=== PATIENT | female | born 1950 | race Caucasian/White ===

== ENCOUNTER 2018-01-06 00:55 | Emergency (ER) | payer MEDICARE ==
[~2018-01-06] VITALS: Ht 170.2 cm; Wt 106.1 kg
[~2018-01-06 00:55] MED LIST: ACET325 PO; ALPR.25; ALPR.25 PO; ASPI325 PO; ASPI81EC PO; BUPR150ER PO; BUPR150T2 PO; CHOL10002 PO; CYCL10; CYCL10 PO; Coq-1030 MG; DICL250 PO; DULO60 PO; Daily Multiple1 EACH; ESTR25VT PV; FLUT.05NI; FOLI400 PO; Fish Oil300 MG; GRALISE PO; HYDACE5 PO; HYDACE5325 PO; HYDR1TAB94; LEVSOD100 PO; LEVSOD125 PO; LIVALO4 MG PO; MAGOXI400 PO; MELA3; METO50 PO; MOMENI; MULVITMIND PO; Milk Of Ma400 MG/5 M PO; NEBI10 PO; Naprosyn375 MG PO; OLME20 PO; OLME40; OLME40 PO; OMEP20ER PO; PRAM.125 PO; PRIM50 PO; Percocet 5-3251 EACH PO; SERT50 PO; TEMA15 PO; TRAZ50; UBID100 PO; Valium5 MG PO; XARELTO20 MG PO; [UNRECOGNIZED DRUG - CODE] PO
[2018-01-06 02:20] LABS: BASOPHILS ABSOLUTE AUTO 0.09 K/mm3 (0.00-0.23); BASOPHILS PERCENT AUTO 1 % (0-2); EOSINOPHILS ABSOLUTE AUTO 0.17 K/mm3 (0.00-0.68); EOSINOPHILS PERCENT AUTO 2 % (0-6); Hematocrit 35.9 % (33.0-51.0); Hemoglobin 12.8 g/dL (11.5-16.0); IMMATURE GRAN ABSOLUTE AUTO 0.09 K/mm3 (0.00-0.10); IMMATURE GRAN PERCENT AUTO 1 % (0-1); LYMPHOCYTES ABSOLUTE AUTO 3.75 K/mm3 (0.84-5.20); LYMPHOCYTES PERCENT AUTO 32 % (21-46); MONOCYTES ABSOLUTE AUTO 1.02 K/mm3 (0.16-1.47); MONOCYTES PERCENT AUTO 9 % (4-13); Mean Corpuscular HGB 34.9 pg (26.0-34.0); Mean Corpuscular HGB Conc 35.7 g/dL (31.5-36.5); Mean Corpuscular Volume 98 fL (80-100); Mean Platelet Volume 11.6 fL (9.1-12.4); NEUTROPHILS ABSOLUTE AUTO 6.55 K/mm3 (1.96-9.15); NEUTROPHILS PERCENT AUTO 56 % (41-73); Platelet Count 223 K/mm3 (150-400); RDW Standard Deviation 43.3 fL (35.1-46.3); Red Blood Cell Count 3.67 M/mm3 (3.80-5.20); White Blood Cell Count 11.67 K/mm3 (4.00-11.30)
[2018-01-06 02:30] LABS: Alanine Aminotransfer (ALT/SGP 31 U/L (12-78); Albumin, Blood 3.4 g/dL (3.4-5.0); Alk Phos 98 U/L (50-136); Anion Gap 10 mmol/L (6-16); Aspartate Aminotrans (AST/SGOT 16 U/L (12-37); Bilirubin, Total 0.3 mg/dL (0.1-1.0); Blood Urea Nitrogen 25 mg/dL (8-24); Bun/Creatinine Ratio 26.2 (12.0-20.0); CO2, Blood 26 mmol/L (21-32); Calcium, Blood 8.5 mg/dL (8.5-10.1); Chloride, Blood 98 mmol/L (98-108); Creatinine, Blood 0.96 mg/dL (0.40-1.00); Globulin, Blood 3.3 g/dL (2.2-4.0); Glomerular Filtration Rate >60 (60-); Glucose, Blood 117 mg/dL (70-99); Potassium, Blood 3.9 mmol/L (3.5-5.5); Sodium, Blood 134 mmol/L (136-145); Total Protein, Blood 6.7 g/dL (6.4-8.2); Troponin I <0.015 ng/mL (0.000-0.040)
== END 2018-01-06 04:00 | disposition home or self-care (01) ==
LOC: ER 00:55
PROVIDERS: Emergency Medicine
DX: I48.91 Unspecified atrial fibrillation (principal); F41.9 Anxiety disorder, unspecified; I10 Essential (primary) hypertension; Z88.2 Allergy status to sulfonamides; Z88.1 Allergy status to other antibiotic agents; Z88.8 Allergy status to other drugs, medicaments and biological substances; Z79.899 Other long term (current) drug therapy
CPT/HCPCS: 36415; 71046; 80053; 83690; 84484; 85025; 93005; 93010; 99284; J2405

== ENCOUNTER 2018-01-19 07:49 | Emergency (ER) | payer MEDICARE ==
[~2018-01-19] VITALS: Ht 170.2 cm; Wt 105.2 kg
[~2018-01-19 07:49] MED LIST changes: -TRAZ50; +TRAZ50 PO
[2018-01-19 08:19] LABS: BASOPHILS ABSOLUTE AUTO 0.07 K/mm3 (0.00-0.23); BASOPHILS PERCENT AUTO 1 % (0-2); EOSINOPHILS PERCENT AUTO 3 % (0-6); Hematocrit 31.9 % (33.0-51.0); Hemoglobin 11.2 g/dL (11.5-16.0); IMMATURE GRAN ABSOLUTE AUTO 0.01 K/mm3 (0.00-0.10); IMMATURE GRAN PERCENT AUTO 0 % (0-1); LYMPHOCYTES ABSOLUTE AUTO 2.07 K/mm3 (0.84-5.20); LYMPHOCYTES PERCENT AUTO 29 % (21-46); MONOCYTES ABSOLUTE AUTO 0.53 K/mm3 (0.16-1.47); MONOCYTES PERCENT AUTO 8 % (4-13); Mean Corpuscular HGB 35.3 pg (26.0-34.0); Mean Corpuscular HGB Conc 35.1 g/dL (31.5-36.5); Mean Platelet Volume 11.2 fL (9.1-12.4); NEUTROPHILS ABSOLUTE AUTO 4.15 K/mm3 (1.96-9.15); NEUTROPHILS PERCENT AUTO 59 % (41-73); Platelet Count 184 K/mm3 (150-400); RDW Coefficient Variation 11.9 % (11.7-14.2); RDW Standard Deviation 43.4 fL (35.1-46.3); Red Blood Cell Count 3.17 M/mm3 (3.80-5.20); White Blood Cell Count 7.03 K/mm3 (4.00-11.30)
[2018-01-19 08:20] LABS: Mean Corpuscular Volume 101 fL (80-100)
[2018-01-19] MEDS ORDERED: QVAR REDIHALE10.6 G1 (08:35)
[2018-01-19 08:36] LABS: Alanine Aminotransfer (ALT/SGP 26 U/L (12-78); Albumin, Blood 3.3 g/dL (3.4-5.0); Alk Phos 83 U/L (50-136); Anion Gap 7 mmol/L (6-16); Aspartate Aminotrans (AST/SGOT 16 U/L (12-37); Bilirubin, Total 0.3 mg/dL (0.1-1.0); Blood Urea Nitrogen 20 mg/dL (8-24); Bun/Creatinine Ratio 22.5 (12.0-20.0); CO2, Blood 26 mmol/L (21-32); Calcium, Blood 8.6 mg/dL (8.5-10.1); Chloride, Blood 102 mmol/L (98-108); Creatinine, Blood 0.89 mg/dL (0.40-1.00); Globulin, Blood 3.3 g/dL (2.2-4.0); Glomerular Filtration Rate >60 (60-); Glucose, Blood 105 mg/dL (70-99); Potassium, Blood 4.3 mmol/L (3.5-5.5); Sodium, Blood 135 mmol/L (136-145); Total Protein, Blood 6.6 g/dL (6.4-8.2); Troponin I <0.015 ng/mL (0.000-0.040)
[2018-01-19 09:10] LABS: Free Thyroxine 1.21 ng/dL (0.70-1.60)
[2018-01-19 09:12] LABS: Thyroid Stimulating Hormone 2.23 uIU/mL (0.360-4.800)
== END 2018-01-19 09:20 | disposition home or self-care (01) ==
LOC: ER 07:49
PROVIDERS: Emergency Medicine
DX: I48.91 Unspecified atrial fibrillation (principal); R07.89 Other chest pain; Z88.2 Allergy status to sulfonamides; Z88.8 Allergy status to other drugs, medicaments and biological substances; Z88.1 Allergy status to other antibiotic agents; Z79.899 Other long term (current) drug therapy; Z79.82 Long term (current) use of aspirin; Z79.891 Long term (current) use of opiate analgesic; F41.9 Anxiety disorder, unspecified; I10 Essential (primary) hypertension
CPT/HCPCS: 36415; 71046; 80053; 84439; 84443; 84484; 85025; 93005; 93010

== ENCOUNTER 2018-04-21 06:12 | Day surgery (SDC) | payer MEDICARE ==
[~2018-04-21] VITALS: Ht 165.1 cm; Wt 103.0 kg
[~2018-04-21 06:12] MED LIST changes: +ALBU90OI6 INH; +Budeprion Xl300 MG PO; -Coq-1030 MG; +Coq-1030 MG PO; +ELIQUIS5 MG PO; +HYDCHL25 PO; -HYDR1TAB94; +HYDR1TAB94 PO; +Hair, Skin & N1 EACH PO; +METO25 PO; +MONT10T PO; +Omeprazole20 M1 PO; +QVAR REDIHALE10.6 G1
== END 2018-04-21 22:44 | disposition home or self-care (01) ==
LOC: MHTC 06:12
PROC: 5A2204Z Restoration of Cardiac Rhythm, Single (ICD-10-PCS; principal; 2018-04-21)
DX: I48.1 Persistent atrial fibrillation (principal)
CPT/HCPCS: 92960; 93005; 93010; 99152; J2250; J3010; J7030

== ENCOUNTER → 2019-05-07 | Outpatient (CLI) | payer MEDICARE ==
[2019-05-09 14:07] LABS: HPV 16 Negative (Negative); HPV 18 Negative (Negative); HPV OTHER HR TYPES Negative (Negative)
== END ==
LOC: LAB SHORT 17:57 → LAB 17:57
PROVIDERS: Nurse Practitioner Women's Health
DX: Z12.72 Encounter for screening for malignant neoplasm of vagina (principal); Z91.89 Other specified personal risk factors, not elsewhere classified
CPT/HCPCS: 87624; G0123

== ENCOUNTER 2019-10-09 13:09 | Emergency (ER) | payer MEDICARE ==
[~2019-10-09] VITALS: Ht 170.2 cm; Wt 102.5 kg
[2019-10-09] MEDS ORDERED: CEFD300 PO (14:37)
[2019-10-09] MEDS ORDERED: BENZ100A PO (14:44)
== END 2019-10-09 14:42 | disposition home or self-care (01) ==
LOC: ER 13:09
DX: J18.9 Pneumonia, unspecified organism (principal); I48.91 Unspecified atrial fibrillation; I10 Essential (primary) hypertension; F41.9 Anxiety disorder, unspecified; Z88.2 Allergy status to sulfonamides; Z88.8 Allergy status to other drugs, medicaments and biological substances; Z88.3 Allergy status to other anti-infective agents; Z79.51 Long term (current) use of inhaled steroids; Z79.899 Other long term (current) drug therapy; Z79.82 Long term (current) use of aspirin
CPT/HCPCS: 71046; 99283-25

== ENCOUNTER → 2020-01-14 | Outpatient (CLI) | payer MEDICARE ==
[~2020-01-14] MED LIST changes: +BENZ100A PO; +CEFD300 PO
== END ==
LOC: LAB SHORT 12:31 → LAB EV 12:31
DX: R05 Cough (principal)
CPT/HCPCS: U0003

== ENCOUNTER → 2020-03-24 | Outpatient (CLI) | payer MEDICARE ==
[~2020-03-24] MED LIST changes: +Aspirin EC81 MG PO; +BUPROPION XL150 M1 PO; +CEPH500 PO; +LISI10 PO; +METOPROLOL TART25 MG PO; +Methotrexate2.5 MG; +SYNTHROID125 MC1 PO; +VITAMIN D31000 UNI1 PO
[2020-03-29 04:11] LABS: HSV-1 DNA Negative (Negative); HSV-2 DNA Negative (Negative)
== END | disposition home or self-care (01) ==
LOC: LAB SHORT 18:22 → LAB 18:22
PROVIDERS: Internal Medicine
DX: K12.1 Other forms of stomatitis (principal); N76.0 Acute vaginitis; R30.9 Painful micturition, unspecified
CPT/HCPCS: 87077; 87086; 87186; 87529

== ENCOUNTER 2020-03-26 16:06 | Inpatient (IN) | payer MEDICARE ==
[~2020-03-26] VITALS: Ht 167.6 cm; Wt 112.5 kg
[~2020-03-26 16:06] MED LIST changes: -BUPROPION XL150 M1 PO; -CEPH500 PO; -LISI10 PO; -METOPROLOL TART25 MG PO; -Methotrexate2.5 MG; -SYNTHROID125 MC1 PO
[2020-03-26 16:40] LABS: BASOPHILS ABSOLUTE AUTO 0.02 K/mm3 (0.00-0.23); BASOPHILS PERCENT AUTO 0 % (0-2); EOSINOPHILS PERCENT AUTO 0 % (0-6); Hemoglobin 9.9 g/dL (11.5-16.0); IMMATURE GRAN ABSOLUTE AUTO 0.07 K/mm3 (0.00-0.10); IMMATURE GRAN PERCENT AUTO 1 % (0-1); LYMPHOCYTES ABSOLUTE AUTO 0.76 K/mm3 (0.84-5.20); LYMPHOCYTES PERCENT AUTO 6 % (21-46); MONOCYTES ABSOLUTE AUTO 1.46 K/mm3 (0.16-1.47); MONOCYTES PERCENT AUTO 11 % (4-13); Mean Corpuscular HGB 36.5 pg (26.0-34.0); Mean Corpuscular HGB Conc 34.1 g/dL (31.5-36.5); Mean Corpuscular Volume 107 fL (80-100); NEUTROPHILS ABSOLUTE AUTO 11.42 K/mm3 (1.96-9.15); NEUTROPHILS PERCENT AUTO 83 % (41-73); Platelet Count 160 K/mm3 (150-400); RDW Coefficient Variation 12.8 % (11.7-14.2); RDW Standard Deviation 49.3 fL (35.1-46.3); Red Blood Cell Count 2.71 M/mm3 (3.80-5.20); White Blood Cell Count 13.73 K/mm3 (4.00-11.30)
[2020-03-26 16:59] LABS: Source, Urine Clean Catch
[2020-03-26 17:01] LABS: Alanine Aminotransfer (ALT/SGP 26 U/L (12-78); Albumin, Blood 2.8 g/dL (3.4-5.0); Albumin/Globulin Ratio 0.8 (0.8-1.8); Alk Phos 88 U/L (50-136); Anion Gap 8 mmol/L (6-16); Aspartate Aminotrans (AST/SGOT 18 U/L (12-37); Bilirubin, Total 0.7 mg/dL (0.1-1.0); Blood Urea Nitrogen 17 mg/dL (8-24); Bun/Creatinine Ratio 18.3 (12.0-20.0); CO2, Blood 24 mmol/L (21-32); Calcium, Blood 8.3 mg/dL (8.5-10.1); Chloride, Blood 95 mmol/L (98-108); Creatinine, Blood 0.93 mg/dL (0.40-1.00); Globulin, Blood 3.5 g/dL (2.2-4.0); Glomerular Filtration Rate >60 (60-); Glucose, Blood 146 mg/dL (70-99); Potassium, Blood 3.4 mmol/L (3.5-5.5); Sodium, Blood 127 mmol/L (136-145); Total Protein, Blood 6.3 g/dL (6.4-8.2); Troponin I 0.091 ng/mL (0.000-0.040)
[2020-03-26 17:02] LABS: Bilirubin, Urine Neg (Neg); Blood, Urine 3+ (Neg); Glucose Qualitative, Urine Neg (Neg); Ketones, Urine Neg (Neg); Leukocyte Esterase, Urine 3+ (Neg); Nitrite, Urine Neg (Neg); Protein, Urine 2+ (Neg); Urobilinogen, Urine NORM (Normal)
[2020-03-26 17:15] LABS: Appearance, Urine Hazy (Clear); Color, Urine Yellow (P-Yellow)
[2020-03-26 17:16] LABS: Squamous Epithelial Cells Many /hpf (Few); White Blood Cells, Urine TNTC /hpf (0-5)
[2020-03-26 17:17] LABS: Bacteria Not Seen /hpf
[2020-03-26] MEDS ORDERED: SYNTHROID125 MC1 PO ×2 (17:59)
[2020-03-26] MEDS ORDERED: METOPROLOL TART25 MG PO (18:00)
[2020-03-26] MEDS ORDERED: Methotrexate2.5 MG (18:01)
[2020-03-26] MEDS ORDERED: BUPROPION XL150 M1 PO ×2 (18:03)
[2020-03-26 18:51] LABS: International Normalized Ratio 1.29; Prothrombin Time Results 13.6 Sec (9.7-11.5)
--- NOTE | 2020-03-26 22:52 | NUR ---
PCU ADMIT PT BROUGHT TO PCU-13 BY STACIE FROM ER @ [facility] 1945. PT A&O X4. PT VERY WEAK, REQUIRING 1 PERSON ASSIST TO STAND AND TURN FROM [facility] TO PCU BED. PT THEN REPORTED DIZZINESS W/ GETTING UP. BP FOUND TO BE LOW UPON ARRIVAL TO UNIT. 500 ML NS BOLUS ADMINISTERED PER ORDERS UPON PT ARRIVAL TO UNIT. BP IMPROVED. CALL TO RIYA CALLEJAS W/ ORDER TO DC FURTHER BOLUS ORDERS & CONTINUE W/ NS MAINTENCE FLUID ONLY. ALL OTHER VSS. MONITOR SHOWING AFIB, HR 80's. SPO2 > 92% ON RA. PT W/ EPISODE OF INCONTINENCE UPON ADMIT. PT REPORTS NORMALLY BEING CONTINENT, BUT NOW HAVING EPISODES OF INCONTINENCE D/T URGENCY. ATTENDS PLACED. SORES NOTED TO PT MOUTH. PT REFUSING PRN MOUTHWASH PER EMAR AT THIS TIME. PT W/ HOME MED ORDER FOR PITAVASTATIN, NOT W/ PT AT THIS TIME, PT STATES SHOULD BE ABLE TO BRING MEDICATION IN TOMORROW. WILL CONTINUE TO MONITOR & PROVIDE CARE.
[2020-03-26 23:07] LABS: Hematocrit 28.2 % (33.0-51.0); Hemoglobin 9.7 g/dL (11.5-16.0)
--- NOTE | 2020-03-27 05:17 | NUR ---
SHIFT SUMMARY PT CONTINUES TO BE A&O X4. VSS. MONITOR SHOWING AFIB, HR 80's-90's. PT REPORTS FEELING BETTER THIS AM. STRENGTH IMPROVING. NS GTT INFUSING PER ORDERS. WILL CONTINUE TO MONITOR & PROVIDE CARE.
[2020-03-27 05:49] LABS: BASOPHILS ABSOLUTE AUTO 0.04 K/mm3 (0.00-0.23); BASOPHILS PERCENT AUTO 0 % (0-2); EOSINOPHILS ABSOLUTE AUTO 0.02 K/mm3 (0.00-0.68); EOSINOPHILS PERCENT AUTO 0 % (0-6); Hematocrit 28.6 % (33.0-51.0); Hemoglobin 9.7 g/dL (11.5-16.0); IMMATURE GRAN ABSOLUTE AUTO 0.08 K/mm3 (0.00-0.10); IMMATURE GRAN PERCENT AUTO 1 % (0-1); LYMPHOCYTES ABSOLUTE AUTO 1.22 K/mm3 (0.84-5.20); LYMPHOCYTES PERCENT AUTO 9 % (21-46); MONOCYTES ABSOLUTE AUTO 1.36 K/mm3 (0.16-1.47); MONOCYTES PERCENT AUTO 10 % (4-13); Mean Corpuscular HGB 36.9 pg (26.0-34.0); Mean Corpuscular HGB Conc 33.9 g/dL (31.5-36.5); Mean Corpuscular Volume 109 fL (80-100); Mean Platelet Volume 12.1 fL (9.1-12.4); NEUTROPHILS ABSOLUTE AUTO 10.47 K/mm3 (1.96-9.15); NEUTROPHILS PERCENT AUTO 79 % (41-73); Platelet Count 151 K/mm3 (150-400); RDW Coefficient Variation 12.8 % (11.7-14.2); RDW Standard Deviation 50.3 fL (35.1-46.3); Red Blood Cell Count 2.63 M/mm3 (3.80-5.20); White Blood Cell Count 13.19 K/mm3 (4.00-11.30)
[2020-03-27 06:01] LABS: International Normalized Ratio 1.7; Prothrombin Time Results 17.7 Sec (9.7-11.5)
[2020-03-27 06:18] LABS: Alanine Aminotransfer (ALT/SGP 23 U/L (12-78); Albumin, Blood 2.6 g/dL (3.4-5.0); Albumin/Globulin Ratio 0.7 (0.8-1.8); Alk Phos 86 U/L (50-136); Anion Gap 9 mmol/L (6-16); Aspartate Aminotrans (AST/SGOT 23 U/L (12-37); Bilirubin, Total 0.8 mg/dL (0.1-1.0); Blood Urea Nitrogen 14 mg/dL (8-24); CO2, Blood 24 mmol/L (21-32); Calcium, Blood 8.2 mg/dL (8.5-10.1); Chloride, Blood 95 mmol/L (98-108); Creatinine, Blood 0.94 mg/dL (0.40-1.00); Globulin, Blood 3.8 g/dL (2.2-4.0); Glomerular Filtration Rate >60 (60-); Glucose, Blood 121 mg/dL (70-99); Potassium, Blood 3.7 mmol/L (3.5-5.5); Sodium, Blood 128 mmol/L (136-145); Total Protein, Blood 6.4 g/dL (6.4-8.2)
--- NOTE | 2020-03-27 16:47 | NUR ---
Echocardiogram completed.
--- NOTE | 2020-03-27 19:27 | NUR ---
SHIFT SUMMARY NO ACUTE CHANGES NOTED THROUGH THE DAY. VSS, PT IS TOLERATING PO INTAKE, IV FLUIDS & ABX INFUSED PER EMAR. STAND BY ASSIST TO THE BATHROOM. NO STOOLS REPORTED BY PT TODAY. CALL LIGHT IN REACH.
[2020-03-27 21:31] LABS: Stool Occult Blood Guaiac 1 Neg (Neg)
[2020-03-27 22:52] LABS: Adenovirus F 40/41 Not Detected (NOT DETECT); Astrovirus Not Detected (NOT DETECT); Campylobacter Sp Not Detected (NOT DETECT); Cryptosporidium Not Detected (NOT DETECT); Cyclospora Cayetanensis Not Detected (NOT DETECT); E. Coli O157 Not Detected (NOT DETECT); Entamoeba Histolytica Not Detected (NOT DETECT); Enteroaggregative E. coli-EAEC Not Detected (NOT DETECT); Enteropathogenic E. coli-EPEC Not Detected (NOT DETECT); Enterotoxigenic E. coli-ETEC Not Detected (NOT DETECT); Giardia Lamblia Not Detected (NOT DETECT); Norovirus GI/GII Not Detected (NOT DETECT); Plesiomonas Shigelloides Not Detected (NOT DETECT); Rotavirus A Not Detected (NOT DETECT); Salmonella Sp Not Detected (NOT DETECT); Sapovirus Not Detected (NOT DETECT); Shiga Toxin-prod E. coli-STEC Not Detected (NOT DETECT); Shigella/Enteroin E. coli-EIEC Not Detected (NOT DETECT); Vibrio Cholerae Not Detected (NOT DETECT); Vibrio Sp Not Detected (NOT DETECT); Yersinia Enterocolitica Not Detected (NOT DETECT)
--- NOTE | 2020-03-28 05:02 | NUR ---
SHIFT SUMMARY PT SLEEPING IN ROOM COMFORTABLY AT THIS TIME. NO ACUTE CHANGES IN STATUS T/O NIGHT. PT SLEPT WELL, AND CALLED APPROPRIATELY FOR NEEDS. DENIED CP OR SOB T/O NIGHT. IVF INSUING IN PIV AT 100ML/HR. PT CALLED FOR SBA TO BSC. PT ABLE TO MOVE TO BSC W/O HELP. REPORTS STILL SLIGHTLY UNSTEADY BUT DOES NOT REQUIRE HELP. CALL LIGHT IN REACH.
[2020-03-28 12:42] LABS: BASOPHILS ABSOLUTE AUTO 0.03 K/mm3 (0.00-0.23); BASOPHILS PERCENT AUTO 0 % (0-2); EOSINOPHILS PERCENT AUTO 1 % (0-6); Hematocrit 27.3 % (33.0-51.0); Hemoglobin 9.4 g/dL (11.5-16.0); IMMATURE GRAN ABSOLUTE AUTO 0.06 K/mm3 (0.00-0.10); IMMATURE GRAN PERCENT AUTO 1 % (0-1); LYMPHOCYTES ABSOLUTE AUTO 0.96 K/mm3 (0.84-5.20); LYMPHOCYTES PERCENT AUTO 11 % (21-46); MONOCYTES ABSOLUTE AUTO 0.92 K/mm3 (0.16-1.47); MONOCYTES PERCENT AUTO 10 % (4-13); Mean Corpuscular HGB 36.2 pg (26.0-34.0); Mean Corpuscular HGB Conc 34.4 g/dL (31.5-36.5); Mean Corpuscular Volume 105 fL (80-100); Mean Platelet Volume 12.2 fL (9.1-12.4); NEUTROPHILS PERCENT AUTO 77 % (41-73); Platelet Count 146 K/mm3 (150-400); RDW Coefficient Variation 12.6 % (11.7-14.2); RDW Standard Deviation 48.1 fL (35.1-46.3); White Blood Cell Count 9.07 K/mm3 (4.00-11.30)
[2020-03-28 12:55] LABS: Anion Gap 6 mmol/L (6-16); Blood Urea Nitrogen 15 mg/dL (8-24); Bun/Creatinine Ratio 17.8 (12.0-20.0); CO2, Blood 26 mmol/L (21-32); Calcium, Blood 8.3 mg/dL (8.5-10.1); Chloride, Blood 95 mmol/L (98-108); Creatinine, Blood 0.84 mg/dL (0.40-1.00); Glomerular Filtration Rate >60 (60-); Glucose, Blood 122 mg/dL (70-99); Potassium, Blood 3.7 mmol/L (3.5-5.5); Sodium, Blood 127 mmol/L (136-145)
[2020-03-28] MEDS ORDERED: CEPH500 PO ×2 (13:29)
[2020-03-28] MEDS ORDERED: LISI10 PO ×2 (13:30)
--- NOTE | 2020-03-28 14:41 | NUR ---
PCU DISCHARGE SUMMARY PATIENT LEFT UNIT VIA WHEEL CHAIR HOME WITH IN NO ACUTE DISTRESS. RESP E/U ON ROOM AIR. HEART RATE CONTROLLED AFIB IN THE 70'S. PATIENT VERBALIZED DISCHARGE INSTRUCTIONS AND ALL OF CURRENT AND NEW MEDICATIONS. PATIENT TO FOLLOW UP WITH EFM AND CARDIOLOGY.
== END 2020-03-28 14:38 | disposition home or self-care (01) | DRG 872 ==
LOC: ER 16:06 → PCU 18:22
PROVIDERS: Internal Medicine; Nurse Practitioner Acute Care; Physician Assistant; ADMIT Family Medicine
DX: A41.51 Sepsis due to Escherichia coli [E. coli] (principal); N39.0 Urinary tract infection, site not specified; I48.20 Chronic atrial fibrillation, unspecified; I24.8 Other forms of acute ischemic heart disease; E87.1 Hypo-osmolality and hyponatremia; B37.0 Candidal stomatitis; K52.1 Toxic gastroenteritis and colitis; I10 Essential (primary) hypertension; F32.9 Major depressive disorder, single episode, unspecified; E03.9 Hypothyroidism, unspecified; K21.9 Gastro-esophageal reflux disease without esophagitis; F41.1 Generalized anxiety disorder; E78.5 Hyperlipidemia, unspecified; L40.9 Psoriasis, unspecified; J45.20 Mild intermittent asthma, uncomplicated; E87.6 Hypokalemia; I44.7 Left bundle-branch block, unspecified; I37.1 Nonrheumatic pulmonary valve insufficiency; D64.9 Anemia, unspecified; E87.8 Other disorders of electrolyte and fluid balance, not elsewhere classified; T45.1X5A Adverse effect of antineoplastic and immunosuppressive drugs, initial encounter; Z88.2 Allergy status to sulfonamides; Z88.8 Allergy status to other drugs, medicaments and biological substances; Z79.82 Long term (current) use of aspirin; Z79.01 Long term (current) use of anticoagulants
CPT/HCPCS: 0097U; 36415; 71045; 80048; 80053; 81001; 82272; 83605; 83735; 83880; 84443; 84484; 85014; 85018; 85025; 85610; 86850; 86900; 86901; 87040; 87077; 87086; 87186; 93005; 93010; 93306; 96365; 99285-25; A9270-GY; J0696; J3480; J7030; J7040